=== PATIENT | female | born 1980 | race Two or more races ===

== ENCOUNTER 2025-01-27 00:23 | Observation (INO) | payer BC, MEDICAID, SELFPAY ==
[2025-01-27] VITALS (12 sets, daily range): BP systolic 110–149; BP diastolic 68–89; PULSE 62–95; RESP 16–20; TEMP 36.1–36.9; O2SAT 96–100; BMI 27.4
--- NOTE | 2025-01-27 00:32 | EKG_ITS ---
[facility] Test Date: 2025-01-27 Pat Name: LEA OWEN Department: Room: - Gender: Female Information Coordinator: : 1980 Requested By: Max Rodríguez Order Number: [id number] Reading MD: Max Rodríguez Measurements Intervals [place] Rate: 94 P: 47 AK: 150 QRS: 57 QRSD: 79 T: 61 QT: 367 QTc: 460 Interpretive Statements SINUS RHYTHM No previous ECG available for comparison /store/S0/[id number]
--- NOTE | 2025-01-27 00:33 | PD.EDRME ---
Rapid Medical Screening Exam RME Arrival date/time: 01/27/25 00:23 44 yo f present to ED for c/o of abd, chest pain for 1 day I have greeted and performed a focused initial assessment of this patient. A comprehensive ED assessment and evaluation of the patient, analysis of all test results, and completion of the medical decision making process will be conducted by additional ED providers. Chief Complaint: Abdominal Pain Time Seen by Provider: 01/27/25 00:32 Vital signs: Vital Signs Temperature 98.4 F 01/27/25 02:38 Pulse Rate 68 01/27/25 02:38 Respiratory Rate 18 01/27/25 02:38 Blood Pressure 148/89 H 01/27/25 02:38 Pulse Oximetry (%) 100 01/27/25 02:38 Oxygen Delivery Method Room Air 01/27/25 02:38
[2025-01-27 01:11] LABS: Collection Type, Urine Voided
[2025-01-27 01:11] LABS: Basophils % (Auto) 0 % (0-2.5); Eosinophils % (Auto) 0 % (0-10); Hematocrit 29.4 % (36.0-46.0); Immature Granulocytes % (Auto) 0 % (0-0); Immature Granulocytes Auto 0.01 Thou/mm3 (0.00-0.00); Lymphocytes # (Auto) 1.5 Thou/mm3 (1.0-4.8); Lymphocytes % (Auto) 18 % (10-50); Mean Corpuscular HGB Conc 28.6 g/dl (31.0-37.0); Mean Corpuscular Hemoglobin 18.3 pg (25.0-35.0); Mean Corpuscular Volume 64 fL (80-100); Monocytes # (Auto) 0.7 Thou/mm3 (0.0-0.8); Monocytes % (Auto) 8 % (0-12); Neutrophils # (Auto) 5.9 Thou/mm3 (1.8-7.7); Neutrophils % (Auto) 73 % (37-80); Nucleated Red Blood Cell % 0 /100 WBC (0); Platelet Count 411 Thou/mm3 (140-440); RDW Standard Deviation 41.7 fL (36.4-46.3); Red Blood Count 4.58 Miln/mm3 (4.00-5.20); White Blood Count 8.2 Thou/mm3 (3.6-11.0)
[2025-01-27 01:16] LABS: Hemoglobin 8.4 g/dL (12.0-16.0)
[2025-01-27 01:24] LABS: Path Review Blood Smear Sent to Pathologist
[2025-01-27 01:37] LABS: HCG,Qualitative Serum Negative
[2025-01-27 01:40] LABS: Bilirubin,Urine Negative (Negative); Blood,Urine Negative (Negative); Clarity,Urine Turbid (Clear/Hazy); Color,Urine Yellow (Lt Yel-Yel); Glucose, Urine Negative (Negative); Ketones,Urine 1+ (Negative); Leukocyte Esterase,Urine Negative (Negative); Nitrite,Urine Negative (Negative); Protein,Urine Trace (Neg - Trace); RBC,Urine 2 /hpf (0-3); Specific Gravity,Urine 1.028 (1.001-1.035); Squamous Epithelial Cell,Urine 22 /hpf (0-5); Urobilinogen,Urine Negative mg/dL (0.0-1.0); WBC,Urine 1 /hpf (0-5)
[2025-01-27 01:51] LABS: Alanine Aminotransferase 12 U/L (10-49); Albumin, Serum 4.4 gm/dL (3.5-5.0); Albumin/Globulin Ratio 1.3 (1.2-2.2); Alkaline Phosphatase 70 U/L (46-116); Anion Gap 9 (7-16); Aspartate Amino Transferase 20 U/L (0-34); BUN/Creatinine Ratio 11 Ratio (12-20); Bilirubin,Total 0.7 mg/dL (0.3-1.2); Blood Urea Nitrogen 9 mg/dL (9-23); Calcium 9.1 mg/dL (8.3-10.6); Calcium (Corrected) 9.1 mg/dL (8.5-10.1); Carbon Dioxide 24.9 mMol/L (20.0-31.0); Chloride 106 mMol/L (98-107); Creatinine (Component) 0.8 mg/dL (0.6-1.3); Estimated Creatinine Clearance 89.4 mL/min (>60); Globulin 3.3 gm/dL (2.3-3.5); Glucose 103 mg/dL (74-106); Osmolality,Calculated 278 (275-295); Potassium 3.5 mMol/L (3.4-5.1); Sodium 140 mMol/L (136-145); Total Protein 7.7 gm/dL (5.7-8.2); eGFR > 60 See Note
--- NOTE | 2025-01-27 02:04 | XR_ITS ---
Examination: Pelvic ultrasound, transabdominal, complete Technique: Transabdominal ultrasound of the pelvis performed using grayscale imaging Date and time of exam: January 27, 2025 at 0210 hrs. Indications: Onset pelvic pain today Findings: Uterus 7.1 cm endometrial stripe 0.24 cm No uterine mass or intrauterine gestation Right ovary 3.5 cm arterial flow Left ovary obscured by bowel gas Impression: No uterine mass or intrauterine gestation Negative for right ovarian torsion Left ovary obscured by bowel gas
[2025-01-27 02:10] LABS: Troponin I 0.051 ng/mL (0.0-0.045)
--- NOTE | 2025-01-27 02:48 | PC.NURSE ---
pt came in for abd pain 9/10 pain states abd pain since 0600 with emesis of bile and diarrhea since yesterday, pt states that she had her appendix removed and gallbladder removed.
--- NOTE | 2025-01-27 03:37 | PRELIM_ITS ---
Pelvic ultrasound (transabdominal). January 27, 2025 0210 hours Clinical history: Pelvic pain Findings: The uterus is normal in size measuring 7.1 x 4.6 x 5.9 cm. The endometrium is unremarkable and measures 0.2 cm. The right ovary measures 3.5 x 1.8 x 2.5 cm. The right ovary demonstrates color flow and spectral waveforms on Doppler evaluation. The left ovary is obscured by bowel gas and is not visualized . There is no adnexal mass. There is no free fluid on the submitted images. Impression: Uterus and right ovary are unremarkable. Left ovary not visualized. Report Electronically Signed By: Real Robles 01/27/2025 3:37:05 AM [EST]
[2025-01-27] MEDS: MORPHINE SULF INJ 10 MG/ML VIAL 4 MG IVP (03:49)
[2025-01-27] MEDS: ONDANSETRON INJ 2 MG/ML INJ 2 ML 4 MG IV ×2 (03:49→16:23)
--- NOTE | 2025-01-27 04:39 | PD.EDNV ---
Nausea/Vomit./Diarrhea-RME/HPI General Chief complaint: Abdominal Pain Stated complaint: abd pain nausea vomiting Time Seen by Provider: 01/27/25 00:32 Arrival date/time: 01/27/25 00:23 Limitations: no limitations RME / HPI RME / HPI Narrative: 01/27/25 00:23 44 yo f present to ED for c/o of abd, chest pain for 1 day I have greeted and performed a focused initial assessment of this patient. A comprehensive ED assessment and evaluation of the patient, analysis of all test results, and completion of the medical decision making process will be conducted by additional ED providers. HPI: 44-year female presents emergency department with 1 day history of nonbilious nonbloody vomiting since that started in the last 24 hours. States that she does not know how many times she vomited but it is numerous. She then started having diarrhea nonbloody earlier today and again states that she cannot count the number of diarrhea that she has had. Patient today started having some epigastric burning. Related Data Previous Rx's ?Medication ?Instructions ?Recorded oxycodone-acetaminophen 5 mg-325 1 tab PO Q6H PRN pain #10 tabs 11/16/ mg tablet (Percocet) Allergies Allergy/AdvReac Type Severity Reaction Status Date / Time Penicillins Allergy Intermediate Palpitation Verified 01/27/25 00:29 s Review of Systems Review of Systems Systems Reviewed: All systems reviewed, normal except as documented ED Exam General Limitations: Present no limitations General appearance: Present alert and in no apparent distress Head Head exam: Present atraumatic Eye Eye exam: Present normal appearance, PERRL and EOMI ENT ENT exam: Present normal exam, normal oropharynx and mucous membranes moist Neck Neck exam: Present normal inspection, full ROM and trachea midline Chest Chest inspection: Present normal inspection and symmetric chest wall rise Respiratory Respiratory exam: Present normal lung sounds bilaterally Cardiovascular Cardiovascular exam: Present regular rate, normal rhythm and normal heart sounds Abdominal Exam Abdominal exam: Present soft and normal bowel sounds Extremities Exam Extremities exam: Present normal inspection and full ROM Back Exam Back exam: Present normal inspection and full ROM Neurological Exam Neurological exam: Present alert, oriented X3 and CN II-XII intact Psychiatric Psychiatric exam: Present normal affect and normal mood Skin Skin exam: Present warm, dry, intact and normal color Course Quality Measures none Orders Category Date Time Status CT Screening NOW Care 01/27/25 05:49 Active EKG (ED ONLY) *Do not use* NOW Care 01/27/25 00:32 Completed EKG (ED ONLY) *Do not use* NOW Care 01/27/25 05:[address] angio chest abdomen pelvis Stat Exams 01/27/25 05:49 Completed EKG (ED Only) Stat Exams 01/27/25 00:32 Draft EKG (ED Only) Stat Exams 01/27/25 05:46 Draft US pelvic complete Stat Exams 01/27/25 02:04 Completed CBC Stat Lab 01/27/25 00:56 Completed CMP [Comprehensive Metabolic Panel] Stat Lab 01/27/25 00:56 Completed HCG,Qualitative Serum Stat Lab 01/27/25 00:56 Completed Path Review Blood Smear Stat Lab 01/27/25 00:56 Completed TSH [Thyroid Stimulating Hormone] Stat Lab 01/27/25 00:56 Completed Troponin I Stat Lab 01/27/25 00:56 Completed Troponin I Stat Lab 01/27/25 04:55 Completed Troponin I Stat Lab 01/27/25 08:30 Completed UA [Urinalysis] Stat Lab 01/27/25 00:53 Completed Aspirin Chew Med 01/27/25 05:48 Discontinued 324 mg PO X1 ONE Morphine Inj Med 01/27/25 03:38 Discontinued 4 mg IVP X1 ONE Nitroglycerin Oint 2% [Nitro-paste Oint 2%] Med 01/27/25 05:48 Discontinued 0.5 inch TOP X1 ONE Ondansetron Inj [Zofran Inj] Med 01/27/25 03:39 Discontinued 4 mg IV X1 ONE Vital Signs Vital signs: Vital Signs Temperature 98.4 F 01/27/25 02:38 Pulse Rate 68 01/27/25 02:38 Respiratory Rate 18 01/27/25 02:38 Blood Pressure 148/89 H 01/27/25 02:38 Pulse Oximetry (%) 100 01/27/25 02:38 Oxygen Delivery Method Room Air 01/27/25 02:38 Nausea/Vomiting/Diarrhea MDM Narrative MDM Narrative:: 44-year-old female with no past medical history of coronary artery disease. Non-smoker not on control pills presenting to the emergency department with 1 day history of nausea vomiting diarrhea. Patient also has atypical epigastric pain earlier today. EKG in the emergency department does not show ST elevation or ischemia. On arrival blood pressure is 140s with a heart rate of 95 otherwise afebrile. The patient was screened with labs and initial troponin was slightly elevated. Unclear why patient is having both nausea vomiting diarrhea with atypical presentation of possible coronary artery disease. Differential diagnosis includes possible pulm embolism, ischemia, non-STEMI, dehydration, palpitations, or drug use. 0600: Second troponin comes back slightly elevated at 0.87. Nitropaste and aspirin are given. CT angio is ordered to rule out pulmonary embolism. Patient also has a history of chronic anemia and denies family history or other risk factors for PE. Patient with chronic anemia and is not having any vaginal bleeding or blood in the rectum. Electrolytes are normal. Signed out pending results of urine hCG, drug screen, CT angio, and final disposition. Patient data External records reviewed:: [facility] previous records (2021 seen in the emergency department and hospitalized for acute appendicitis) Clinical information provided by:: patient and family Social determinants that could affect healthcare access:: none Patient has the following chronic illnesses:: History of appendicitis, history of How is presenting disease/condition affected by chronic disease/condition?: no chronic disease Evaluation data The following diagnostics were reviewed and interpreted by me:: lab results and EKG tracing(s) Lab and/or radiology exams considered but not ordered:: none Interpretation Summary: See MDM. Medications / Prescriptions Medications / Prescriptions considered but not ordered:: None Medication administrations:: Medication Administration History Acetaminophen (Acetaminophen 325 Mg Tablet) 650 mg PO Q6H PRN PRN Reason: Fever >100.3 or pain 1-3 Stop: 02/26/25 09:52 Last Admin: 01/27/25 16:23 Dose: 650 mg Documented By: BR Enoxaparin Sodium (Enoxaparin Sod Inj 40 Mg/0.4 Ml Syringe) 40 mg SC QDAY ALEN Stop: 02/10/25 09:59 Last Admin: 01/27/25 10:33 Dose: 40 mg Documented By: DO Ondansetron HCl (Ondansetron Inj 2 Mg/Ml Inj 2 Ml) 4 mg IV Q6H PRN; Protocol PRN Reason: NAUSEA OR VOMITING Stop: 02/26/25 09:52 Last Admin: 01/27/25 16:23 Dose: 4 mg Documented By: BR Sennosides (Senna Tablet) 1 tab PO QDAY PRN; Protocol PRN Reason: constipation Stop: 02/26/25 09:52 Discontinued Medications Al Hydrox/Mg Hydrox/Simethicone (Mg Hyd/Al Hyd/Graeme (Maalox Reg) Susp 30 Ml Udc) 30 ml PO X1 ONE Stop: 01/27/25 20:25 Last Admin: 01/27/25 20:41 Dose: 30 ml Documented By: Aspirin (Aspirin 81 Mg Chew) 324 mg PO X1 ONE Stop: 01/27/25 05:49 Last Admin: 01/27/25 06:00 Dose: 324 mg Documented By: APRYL Hyoscyamine (Hyoscyamine Sulf 0.125 Mg Tab.Subl) 0.125 mg PO X1 ONE Stop: 01/27/25 17:44 Last Admin: 01/27/25 18:25 Dose: 0.125 mg Documented By: JOHN Sodium Chloride (Ns) 1,000 mls @ 100 mls/hr IV .Q10H ALEN Stop: 01/27/25 19:59 Last Infusion: 01/27/25 20:39 Dose: Infused Documented By: Admin: 01/27/25 10:33 Dose: 100 mls/hr Documented By: Morphine Sulfate (Morphine Sulf Inj 10 Mg/Ml Vial) 4 mg IVP X1 ONE Stop: 01/27/25 03:39 Last Admin: 01/27/25 03:49 Dose: 4 mg Documented By: APRYL Nitroglycerin (Nitroglycerin Oint 2% 1 Inch Packet) 0.5 inch TOP X1 ONE Stop: 01/27/25 05:49 Last Admin: 01/27/25 06:00 Dose: 0.5 inch Documented By: BD Ondansetron HCl (Ondansetron Inj 2 Mg/Ml Inj 2 Ml) 4 mg IV X1 ONE; Protocol Stop: 01/27/25 03:40 Last Admin: 01/27/25 03:49 Dose: 4 mg Documented By: BD Pantoprazole Sodium (Pantoprazole Inj 40 Mg Vial) 40 mg IVP X1 ONE Stop: 01/27/25 20:26 Last Admin: 01/27/25 20:41 Dose: 40 mg Documented By: Simethicone (Simethicone 80 Mg Chew) 80 mg PO X1 ONE Stop: 01/27/25 17:44 Last Admin: 01/27/25 17:56 Dose: 80 mg Documented By: BR see above Consultations Consultation(s) initiated? (list below): No Diagnosis Nausea Differential Diagnosis: traveler's diarrhea, food poisoning, gastroenteritis, drug-induced nausea and vomiting, dehydration and other (Electrolyte abnormality, ischemia, palpitations, rate related positive troponin) Most likely diagnosis given after review of the tests above:: final dx pending at sign out. Admission Indicated Admission indicated?: not indicated Explain why admission is indicated or not indicated:: Patient signed out pending CT angio Admission Request Was there a request for admission?: No Disposition Plan Disposition Plan: other (specify) (Patient signed out.) Discharge Plan Plan Patient Disposition: Other Care w/in Hosp ([facility]) Problem List Clinical Impression: Atypical chest pain, Nausea vomiting and diarrhea
[2025-01-27 05:44] LABS: Troponin I 0.087 ng/mL (0.0-0.045)
--- NOTE | 2025-01-27 05:46 | EKG_ITS ---
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
--- NOTE | 2025-01-27 05:49 | XR_ITS ---
Examination: CTA chest, with intravenous contrast. CTA abdomen, with intravenous contrast. CTA pelvis, with intravenous contrast. 2-D sagittal and coronal reconstructions. 3-D reconstructions. Date and time of exam: January 27, 2025 0556 hrs. Indications: Chest and abdominal pain today CTDI vol (mgy) 10.6 DLP (MGycm) 578 Technique: Multiple CTA images, 2.0 mm slice thickness, obtained chest, abdomen, pelvis, with the high-resolution 64 slice scanner. 60 cc Isovue-370 is administered intravenously. Sagittal and coronal 2-D reconstructions are obtained. 3-D reconstructions, angiographic images are obtained. 3-D postprocessing, including vascular maximum intensity projections. Low dose protocols were performed. One or more of the following dose reduction techniques were used; automated exposure control, adjustment of the mA and/or KV according to patient size, use of iterative reconstruction technique. Findings: No thoracic aortic aneurysmal dilatation or dissection No pulmonary artery filling defects No paratracheal tracheobronchial or bronchopulmonary adenopathy No pneumonia or pulmonary edema or pleural disease No liver or splenic lesions Absent gallbladder No pancreatic or adrenal mass No common hepatic or common bile duct stones noted No renal or ureteral calculi, no hydronephrosis Aorta normal size Appendix is not visualized No bowel obstruction There is mild diffuse thickening of the colonic wall especially in the rectosigmoid Intact urinary bladder Anteverted uterus Absent osseous structures are intact Impression: Negative for pulmonary artery emboli No mediastinal lymphadenopathy No pneumonia, pulmonary edema or pleural disease Absent appendix Nonspecific colitis pattern, especially involving sigmoid colon
[2025-01-27] MEDS: NITROGLYCERIN OINT 2% 1 INCH PACKET 0.5 INCH TOP (06:00)
[2025-01-27] MEDS: ASPIRIN 81 MG CHEW 324 MG PO (06:00)
--- NOTE | 2025-01-27 06:58 | PD.EDADDENDU ---
Emergency Room Addendum Addendum Narrative: 0600: Care assumed from Dr. Garcia, the previous shift emergency physician. Past medical, surgical, social and family history reviewed. Vitals and home medications reviewed. I will assume the care of the patient at this time, pending urine hCG, drug screen, CT angio, and final disposition. Please refer to the emergency department record for history and examination from initial visit.? 44 year old female presents to the Emergency Department with complaint of lower abdominal pain. Patient thought she had food poisoning. Then, started having nausea, vomiting and diarrhea. She reports passing gas. No constipation or other symptoms. Physical exam by me shows patient under no acute distress at this time. 0950: Discussed test HPI, PMHx, lab, radiology results and/or management with hospitalist. Will admit for further evaluation and management. Accepts patient for admission. Diagnoses: - Atypical chest pain - Nausea, vomiting, and diarrhea RADIOLOGY Procedure(s): CT angio chest abdomen pelvis Accession Number(s): [id number] cc: Jose Manuel Douglas MD; NO PRIMARY/FAMILY,PHYSICIAN; Kait Garcia MD~ Examination: CTA chest, with intravenous contrast. CTA abdomen, with intravenous contrast. CTA pelvis, with intravenous contrast. 2-D sagittal and coronal reconstructions. 3-D reconstructions. Date and time of exam: January 27, 2025 0556 hrs. Indications: Chest and abdominal pain today CTDI vol (mgy) 10.6 DLP (MGycm) 578 Technique: Multiple CTA images, 2.0 mm slice thickness, obtained chest, abdomen, pelvis, with the high-resolution 64 slice scanner. 60 cc Isovue-370 is administered intravenously. Sagittal and coronal 2-D reconstructions are obtained. 3-D reconstructions, angiographic images are obtained. 3-D postprocessing, including vascular maximum intensity projections. Low dose protocols were performed. One or more of the following dose reduction techniques were used; automated exposure control, adjustment of the mA and/or KV according to patient size, use of iterative reconstruction technique. Findings: No thoracic aortic aneurysmal dilatation or dissection No pulmonary artery filling defects No paratracheal tracheobronchial or bronchopulmonary adenopathy No pneumonia or pulmonary edema or pleural disease No liver or splenic lesions Absent gallbladder No pancreatic or adrenal mass No common hepatic or common bile duct stones noted No renal or ureteral calculi, no hydronephrosis Aorta normal size Appendix is not visualized No bowel obstruction There is mild diffuse thickening of the colonic wall especially in the rectosigmoid Intact urinary bladder Anteverted uterus Absent osseous structures are intact Impression: Negative for pulmonary artery emboli No mediastinal lymphadenopathy No pneumonia, pulmonary edema or pleural disease Absent appendix Nonspecific colitis pattern, especially involving sigmoid colon Dictated By: Jose Manuel Douglas MD
--- NOTE | 2025-01-27 07:27 | PC.NURSE ---
PT RESTING IN BED IN NO APPARENT DISTRESS. PT DENIES PAIN BUT STATES THAT SHE OCCASIONALLY FEELS A WEIRD FEELING IN HER CHEST. 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 PVC'S ARE OCCASIONAL. PT REPORTED THAT SHE HAS BEEN SICK RECENTLY AND NOT EATING OR SLEEPING WELL AND THOUGH SHE MAY BE DEHYDRATED. ALL LABS AND RADIOLOGY STUDIES ARE DONE AND RESULTED. PT AWAITING TO SEE ER DOCTOR FOR RESULTS. CALL LIGHT WITHIN REACH
[2025-01-27 08:56] LABS: Troponin I 0.112 ng/mL (0.0-0.045)
[2025-01-27] MEDS: ENOXAPARIN SOD INJ 40 MG/0.4 ML SYRINGE SC (10:33)
[2025-01-27] MEDS: SODIUM CHLORIDE 0.9% 1000 ML 1,000 ML 100 ML IV (10:33)
[2025-01-27 10:51] LABS: Troponin I 0.116 ng/mL (0.0-0.045)
--- NOTE | 2025-01-27 12:01 | PC.NURSE ---
PT SITTING UP IN BED IN NO APPARENT DISTRESS. ASKED PT IF SHE NEEDED ANYTHING. PT HAS NO REQUEST AT THIS TIME. CALL LIGHT WITHIN REACH
--- NOTE | 2025-01-27 14:52 | ESHP_ITS ---
Documentation for date of: 01/27/25 [facility] History of Present Illness Chief complaint: abdominal pain History of present illness: Na Pineda is 44 yr female with no significant PMH who has presented to ED today due to abdominal pain and plapitations. Stated that vomiting started yesterday morning while at work and continued through the day with diarrhea. She denies any blood in vomit or stool. Patient had ate out about 2-3 days ago with family. She has not been able to drink or eat anything since episodes started. Last night, she started experiencing palpitations with no typical chest pain. Some discomfort, non radiating. She denies any SOB, or difficulty in daily activity, no dysuria, no LE edema. Work up in ED was unremarkable except for troponins elevating. EKG showed no ST changes, anemia with Hb 8.4, normal CMP, TSH normal, pelvis u/s negative, CTA chest/abdomen negative. She was given nitroglycerin x 1, loading dose aspirin 325 x 1, morphine 4 mg. Patient admitted for observation and monitoring for NSTEMI type II. PmH: no significant hx PSH: Cholecystectomy 2002, appendectomy 2020 Social: works at critical [employer], denies drinking, no smoking, no drug use FamHx: Mother and father alive, both have history of HTN Allergies: penicillins-palpitations Meds: none Review of Systems Constitutional Constitutional: Reports system reviewed and no additional complaints, except as documented Exam Vital Signs Temp Pulse Resp BP Pulse Ox O2 Del Method 97.9 F 17 L 17 133/72 H 100 Room Air 01/27/25 14:00 01/27/25 14:00 01/27/25 14:00 01/27/25 14:00 01/27/25 14:01/27/25 14:00 Narrative Exam General: Middle aged, No acute distress, cooperative HEENT: NCAT, No JVD noted. Mucosa moist. Pupils are equal and reactive to light bilaterally Cardiovascular: Normal S1 and S2. Regular rate and rhythm. Respiratory: Lungs are clear to auscultation bilaterally. No wheezing or crackles heard. Abdomen: Soft, nontender, not distended, normal bowel sounds. Skin: Warm to touch, dry, no rashes noted Musculoskeletal: No gross injuries. Able to move all 4 extremities. No pitting edema Neuro: Alert and oriented x3. No focal neuro deficits. Psych: Normal affect and mood Results: Labs 01/28/25 04:27 01/28/25 04:27 Labs: Short CBC 01/27/25 Range/Units 00:56 WBC 8.2 (3.6-11.0) Thou/mm3 Hgb 8.4 L (12.0-16.0) g/dL Hct 29.4 L (36.0-46.0) % Plt Count 411 (140-440) Thou/mm3 BMP 01/27/25 00:56 Sodium 140 Potassium 3.5 Chloride 106 Carbon Dioxide 24.9 BUN 9 Creatinine 0.8 Glucose 103 Calcium 9.1 Cardiac Enzymes 01/27/25 01/27/25 01/27/25 Range/Units 00:56 04:55 08:30 Troponin I 0.051 H* 0.087 H* 0.112 H* (0.0-0.045) ng/mL 01/27/25 Range/Units 10:13 Troponin I 0.116 H* (0.0-0.045) ng/mL Liver Function 01/27/25 Range/Units 00:56 Total Bilirubin 0.7 (0.3-1.2) mg/dL AST 20 (0-34) U/L ALT 12 (10-49) U/L Alkaline Phosphatase 70 (46-116) U/L Albumin 4.4 (3.5-5.0) gm/dL Urine 01/27/25 Range/Units 00:53 Urine Color Yellow (Lt Yel-Yel) Urine Clarity Turbid A (Clear/Hazy) Urine pH 6.0 (5.0-7.0) Ur Specific [place] 1.028 (1.001-1.035) Urine Protein Trace (Neg - Trace) Urine Glucose (UA) Negative (Negative) Quality Measures Quality Measures VTE prophylaxis Medications Home Medications and Allergies Allergies Allergy/AdvReac Type Severity Reaction Status Date / Time Penicillins Allergy Intermediate Palpitation Verified 02/04/25 10:44 s Visit Medications Acetaminophen (Acetaminophen 325 Mg Tablet) 650 mg PO Q6H PRN PRN Reason: Fever >100.3 or pain 1-3 Stop: 02/26/25 09:52 Enoxaparin Sodium (Enoxaparin Sod Inj 40 Mg/0.4 Ml Syringe) 40 mg SC QDAY ALEN Stop: 02/10/25 09:59 Last Admin: 01/27/25 10:33 Dose: 40 mg Sodium Chloride (Ns) 1,000 mls @ 100 mls/hr IV .Q10H ALEN Stop: 01/27/25 19:59 Last Admin: 01/27/25 10:33 Dose: 100 mls/hr Ondansetron HCl (Ondansetron Inj 2 Mg/Ml Inj 2 Ml) 4 mg IV Q6H PRN; Protocol PRN Reason: NAUSEA OR VOMITING Stop: 02/26/25 09:52 Sennosides (Senna Tablet) 1 tab PO QDAY PRN; Protocol PRN Reason: constipation Stop: 02/26/25 09:52 Discontinued Medications Aspirin (Aspirin 81 Mg Chew) 324 mg PO X1 ONE Stop: 01/27/25 05:49 Last Admin: 01/27/25 06:00 Dose: 324 mg Morphine Sulfate (Morphine Sulf Inj 10 Mg/Ml Vial) 4 mg IVP X1 ONE Stop: 01/27/25 03:39 Last Admin: 01/27/25 03:49 Dose: 4 mg Nitroglycerin (Nitroglycerin Oint 2% 1 Inch Packet) 0.5 inch TOP X1 ONE Stop: 01/27/25 05:49 Last Admin: 01/27/25 06:00 Dose: 0.5 inch Ondansetron HCl (Ondansetron Inj 2 Mg/Ml Inj 2 Ml) 4 mg IV X1 ONE; Protocol Stop: 01/27/25 03:40 Last Admin: 01/27/25 03:49 Dose: 4 mg Assessment & Plan Plan Na Pineda is 44 yr female with no significant PMH who has presented to ED today due to abdominal pain and plapitations. Stated that vomiting started yesterday morning while at work and continued through the day with diarrhea. She denies any blood in vomit or stool. Patient had ate out about 2-3 days ago with family. Last night, she started experiencing palpitations with no typical chest pain. Some discomfort, non radiating. Patient admitted for observation and monitoring for NSTEMI type II. #NSTEMI II Atypical chest pain, states its more uncomfortable with palpitations. No SOB. EKG showed no ST changes TSH normal, pelvis u/s negative, CTA chest/abdomen negative. trops 0.051-->0.087-->0.112 -trend trops q6hr -maintainence fluids -follow up outpatient cardiology -morphine 4mg PRN -aspirin 81mg -no cardiology consultation #Microcytic anemia MCV 64, Hb 8.4 No active bleeding, maybe due to menstruation. Has never had workup done. -iron pannel pending -start ferrous sulfate Health maintenance: Dispo: tele, trend trops FEN: regular diet DVT prophylaxis: Lovenox daily CODE STATUS: Full cod The patient's management plan was discussed with my attending physician Dr. Triana. Melida Cristina, PGY-1 Attending Provider Attestation/Addendum Patient seen and examined at bedside with resident. Agree with assessment and plan as dictated above. Konrad Triana MD
--- NOTE | 2025-01-27 15:14 | PC.NURSE ---
REPORT GIVEN TO KATIE ON TELE FLOOR. PT TO GO TO ROOM 273
[2025-01-27 15:56] LABS: Ferritin 3 ng/mL (7.3-270.7); Iron 13 mcg/dL (50-170); Percent Iron Saturation 3 % (20-55); Total Iron Binding Capacity 413 mcg/dL (250-425); Unsaturated Iron Binding 400 (225-295)
[2025-01-27] MEDS: ACETAMINOPHEN 325 MG TABLET 650 MG PO (16:23)
[2025-01-27] MEDS: SIMETHICONE 80 MG CHEW PO (17:56)
[2025-01-27 18:04] LABS: Troponin I 0.108 ng/mL (0.0-0.045)
[2025-01-27] MEDS: HYOSCYAMINE SULF 0.125 MG TAB.SUBL PO (18:25)
[2025-01-27] MEDS: PANTOPRAZOLE INJ 40 MG VIAL IVP (20:41)
[2025-01-27] MEDS: MG HYD/AL HYD/SIME (Maalox Reg) SUSP 30 ML UDC PO (20:41)
[2025-01-27 22:08] LABS: Troponin I 0.133 ng/mL (0.0-0.045)
[2025-01-28] VITALS: BP 115/68; PULSE 105; PULSE 98; RESP 14; TEMP 36.7; O2SAT 98
[2025-01-28 02:28] LABS: Troponin I 0.121 ng/mL (0.0-0.045)
[2025-01-28 04:00] VITALS: BP 135/98; PULSE 78; PULSE 90; RESP 17; TEMP 36.3; O2SAT 99
[2025-01-28 05:09] LABS: Basophils % (Auto) 1 % (0-2.5); Eosinophils # (Auto) 0.1 Thou/mm3 (0.0-0.5); Eosinophils % (Auto) 2 % (0-10); Hematocrit 27.9 % (36.0-46.0); Immature Granulocytes % (Auto) 0 % (0-0); Immature Granulocytes Auto 0.01 Thou/mm3 (0.00-0.00); Lymphocytes # (Auto) 1.7 Thou/mm3 (1.0-4.8); Lymphocytes % (Auto) 30 % (10-50); Mean Corpuscular HGB Conc 27.6 g/dl (31.0-37.0); Mean Corpuscular Hemoglobin 17.9 pg (25.0-35.0); Mean Corpuscular Volume 65 fL (80-100); Monocytes # (Auto) 0.6 Thou/mm3 (0.0-0.8); Monocytes % (Auto) 11 % (0-12); Neutrophils # (Auto) 3.3 Thou/mm3 (1.8-7.7); Neutrophils % (Auto) 58 % (37-80); Nucleated Red Blood Cell % 0 /100 WBC (0); Platelet Count 313 Thou/mm3 (140-440); RDW Standard Deviation 41.6 fL (36.4-46.3); Red Blood Count 4.31 Miln/mm3 (4.00-5.20); White Blood Count 5.8 Thou/mm3 (3.6-11.0)
[2025-01-28 05:40] LABS: Alanine Aminotransferase 11 U/L (10-49); Albumin/Globulin Ratio 1.4 (1.2-2.2); Alkaline Phosphatase 67 U/L (46-116); Anion Gap 9 (7-16); Aspartate Amino Transferase 20 U/L (0-34); BUN/Creatinine Ratio 10 Ratio (12-20); Bilirubin,Total 0.9 mg/dL (0.3-1.2); Blood Urea Nitrogen 7 mg/dL (9-23); Calcium 8.7 mg/dL (8.3-10.6); Calcium (Corrected) 8.7 mg/dL (8.5-10.1); Carbon Dioxide 24.1 mMol/L (20.0-31.0); Cardiac Risk Estimate 3.2 RATIO (3.7-5.6); Chloride 107 mMol/L (98-107); Cholesterol 139 mg/dL (132-200); Creatinine (Component) 0.7 mg/dL (0.6-1.3); Globulin 2.9 gm/dL (2.3-3.5); Glucose 87 mg/dL (74-106); HDL Cholesterol 44 mg/dL (40-60); LDL Cholesterol,Calculated 79 mg/dL (0-130); Magnesium 1.7 mg/dL (1.6-2.6); Osmolality,Calculated 276 (275-295); Phosphorous 2.9 mg/dL (2.4-5.1); Potassium 3.3 mMol/L (3.4-5.1); Sodium 140 mMol/L (136-145); Total Protein 6.9 gm/dL (5.7-8.2); Triglycerides 79 mg/dL (30-150); eGFR > 60 See Note
[2025-01-28 06:00] VITALS: BMI 27.9
--- NOTE | 2025-01-28 07:14 | PC.NURSE ---
Patient HR increased to 150 while sitting on the side of the bed. Patient reports no pain. Dr Cristina will assess patient at bedside.
[2025-01-28 07:28] VITALS: PULSE 118; RESP 33; RESP 98
[2025-01-28 07:41] VITALS: BP 115/88; BP 119/83; BP 134/79
[2025-01-28 07:42] LABS: Hemoglobin 7.7 g/dL (12.0-16.0)
[2025-01-28 08:00] VITALS: BP 135/90; PULSE 79; PULSE 90; RESP 17; TEMP 36.4; O2SAT 94
[2025-01-28] MEDS: FERROUS SULF 325 MG TABLET PO (08:02)
[2025-01-28] MEDS: POTASSIUM CHLORIDE 20 mEq TABCR 40 MEQ PO (08:02)
[2025-01-28] MEDS: ENOXAPARIN SOD INJ 40 MG/0.4 ML SYRINGE SC (08:02)
[2025-01-28] MEDS: SODIUM CHLORIDE 0.9% 1000 ML 1,000 ML 100 ML IV (08:02)
--- NOTE | 2025-01-28 09:09 | PC.SS ---
Follow up note: Pt is d/c for today and will return home.
--- NOTE | 2025-01-28 20:28 | ESDS_ITS ---
Planned Discharge Date 01/28/25 DS: Providers Provider Date of admission: 01/27/25 09:53 Primary care physician: Physician No Primary/Family Admitting Provider: Konrad Triana MD Attending Provider on Admission: Jefry Ricardo DO Attending Provider on DC: Jefry Ricardo DO Discharging Provider: Jefry Riacrdo DO DS: Diagnosis Problem List Completed Was Problem List Reviewed/Reconciled?: Yes Hospital Course Hospital Course Hospital course: Reason for hospitalization: abdominal pain, elevated troponins Na Pineda is 44 yr female with no significant PMH who has presented to [facility] ED on 01/27/25 due to abdominal pain and palpitations. Patient had vomiting that started two days ago. It continued throughout the day along with diarrhea. She denied any blood in vomit or stool. Patient had ate out about 2-3 days ago with family. She has not been able to drink or eat anything since episodes started. Work up in ED was unremarkable except for troponins elevating. EKG showed no ST changes, Hb 8.4, normal CMP, TSH normal (2.20), pelvis u/s negative, CTA chest/abdomen negative. Patient was admitted for observation and monitoring for NSTEMI type II. Troponins peaked at 0.133. Further workup including iron pannel showed iron deficiency anemia with iron 13, TIBC 413, iron sat 3%, ferritin 3. She was started on oral ferrous sulfate and given fluids for repletion. Patient is now in stable condition and ready for discharge. Recommendations were given as below. Discharge Recommendations: Continue taking ferrous sulfate once a day for your iron deficiency anemia. Obtain referral for Cardiology Outpatient and follow up with a java lead developer. Hydrate with water intake of 40-50oz Follow-up in [facility] in 1 to 2 weeks. Call [phone] to make an appointment Address: [facility], [address], [address], [place], [address] Return to ED if symptoms return or worsen. Hospital Diagnoses: #NSTEMI II #Microcytic anemia The patient's management plan was discussed with my attending physician Dr. Ricardo. Melida Cristina MD, PGY-1 Time Spent with Patient Time attestation: Total time spent providing and/or coordinating discharge services: Time spent: Greater than 30 minutes Exam Vital Signs Temp Pulse Resp BP Pulse Ox O2 Del Method 97.6 F 79 17 135/90 H 94 L Room Air 01/28/25 08:00 01/28/25 08:00 01/28/25 08:00 01/28/25 08:00 01/28/25 08:00 01/28/25 08:00 Narrative Exam General: Middle aged, No acute distress, cooperative HEENT: NCAT, No JVD noted. Mucosa moist. Pupils are equal and reactive to light bilaterally Cardiovascular: Normal S1 and S2. Regular rate and rhythm. Respiratory: Lungs are clear to auscultation bilaterally. No wheezing or crackles heard. Abdomen: Soft, nontender, not distended, normal bowel sounds. Skin: Warm to touch, dry, no rashes noted Musculoskeletal: No gross injuries. Able to move all 4 extremities. No pitting edema Neuro: Alert and oriented x3. No focal neuro deficits. Psych: Normal affect and mood Discharge Plan Plan Patient Disposition: HOME (Self Care) Patient condition on transfer: Stable Prescriptions/Referrals Prescriptions/Med Rec: New ferrous sulfate 325 mg (65 mg iron) Tablet,Delayed Release (Dr/Ec) 325 mg PO DAILY 30 Days Qty: 30 0RF Discontinued oxycodone-acetaminophen [Percocet] 5-325 mg tablet 1 tab PO Q6H MDD 4 tabs PRN (Reason: pain) Qty: 10 0RF Referrals: Melida Cristina MD [Resident] - No Primary/Family,Physician [Primary Care Provider] - Patient/Caregiver Discharge Instructions Discharge Activity: activity as tolerated Other Discharge Activity Instructions:: Continue taking ferrous sulfate once a day for your iron deficiency anemia. Obtain referral for Cardiology Outpatient and follow up with a java lead developer. Follow-up in [facility] in 1 to 2 weeks. Call [phone] to make an appointment Address: [facility], [address], [address], [place], [address] Return to ED if symptoms return or worsen. Other Discharge Diet Instructions: Hydrate with water intake of 40-50oz Education Materials: Self-Care for Vomiting and Diarrhea, ED Chest Pain, Uncertain Cause Print Language: Vietnamese Stand Alone Forms: [employer] Award Info., Patient Portal Info Letter, Work/Release Restrictions Discharge Order Discharge Orders: Discharge (Routine); Ordered 01/28/25 Ordered By: Phillip Samson Quality Discharge Quality Measures VTE prophylaxis MD Attestestation MD Attestation I have discussed and was present for the essential components of the discharge history, physical examination, diagnosis, and discharge treatment plan with the resident. I agree with the patient's discharge care as documented by the resident and amended herein by me. Karel Ricardo DO. The patient understood all discharge instructions, all questions were answered satisfactorily. The patient was instructed to return to the Emergency Department is symptoms worsened or persisted. Although this document has been carefully reviewed, there may still be some phonetic and other typographical errors. These errors are purely grammatical due to imperfections in the software program and should not be construed in any way to compromise the substance of the patient's medical care during this visit.
== END 2025-01-28 11:22 | disposition home or self-care (01) ==
LOC: SERX 06:54 → SERHOLD 12:13 → S2NX 01-28 07:30 → SERHOLD 01-28 09:23 → S2NX 01-28 09:24
PROVIDERS: Emergency Medicine; Physician Assistant; Admitting Provider Student in an Organized Health Care Education/Training Program; Emergency Provider Emergency Medicine; Visit Provider Student in an Organized Health Care Education/Training Program
DX: I21.A1 Myocardial infarction type 2 (principal); D50.9 Iron deficiency anemia, unspecified; K52.9 Noninfective gastroenteritis and colitis, unspecified; Z01.810 Encounter for preprocedural cardiovascular examination
CPT/HCPCS: 36415; 71275; 74174; 76856; 80053; 80061; 81001; 82728; 83540; 83550; 83735; 84100; 84443; 84484; 84703; 85025; 93005; 96361; 96374; 99285; A4649; G0378; J1650; J2270; J2405; J2470; J7030; Q9967; A9270

== ENCOUNTER 2025-02-04 10:35 | Outpatient (AMB) | payer BC, MEDICAID, SELFPAY ==
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
[2025-02-04 10:43] VITALS: BP 110/70; PULSE 75; RESP 16; TEMP 36.8; O2SAT 98
== END 2025-02-04 11:19 | disposition home or self-care (01) ==
LOC: HODAHC 10:35
PROVIDERS: Supervising Provider Internal Medicine
DX: D50.9 Iron deficiency anemia, unspecified (principal); R11.2 Nausea with vomiting, unspecified
CPT/HCPCS: 99213; G0463

== ENCOUNTER → 2025-02-07 | Outpatient (CLI) | payer BC, MEDICAID, SELFPAY ==
[2025-02-07 13:29] LABS: Immature Reticulocyte Fraction 10.4 % (3.0-15.9); Reticulocyte Absolute Auto 41.2 Biln/L (25.0-75.0); Reticulocyte Hgb Content 18.4 pg (28.0-35.0)
[2025-02-18 07:13] LABS: Immunoglobulin A 211 mg/dL (47-310); tTG Ab, IgA <1.0 U/mL
== END | disposition home or self-care (01) ==
PROVIDERS: PCP Internal Medicine; Referring Provider Internal Medicine; Visit Provider Internal Medicine
DX: D50.9 Iron deficiency anemia, unspecified (principal)
CPT/HCPCS: 36415; 82784; 85046; 86364

== ENCOUNTER → 2025-05-30 | Outpatient (CLI) | payer BC, MEDICAID, SELFPAY ==
[2025-05-30 14:12] LABS: Collection Type, Urine Clean Catch
[2025-05-30 14:37] LABS: Basophils # (Auto) 0.0 Thou/mm3 (0.0-0.2); Basophils % (Auto) 1 % (0-2.5); Eosinophils # (Auto) 0.1 Thou/mm3 (0.0-0.5); Eosinophils % (Auto) 1 % (0-10); Hematocrit 26.5 % (36.0-46.0); Immature Granulocytes Auto 0.01 Thou/mm3 (0.00-0.00); Lymphocytes # (Auto) 1.3 Thou/mm3 (1.0-4.8); Lymphocytes % (Auto) 21 % (10-50); Mean Corpuscular HGB Conc 26.0 g/dl (31.0-37.0); Mean Corpuscular Hemoglobin 17.3 pg (25.0-35.0); Mean Corpuscular Volume 66 fL (80-100); Monocytes # (Auto) 0.3 Thou/mm3 (0.0-0.8); Monocytes % (Auto) 5 % (0-12); Neutrophils # (Auto) 4.4 Thou/mm3 (1.8-7.7); Neutrophils % (Auto) 73 % (37-80); Nucleated Red Blood Cell # 0.00 Thou/mm3 (0.00-0.00); Nucleated Red Blood Cell % 0 /100 WBC (0); Platelet Count 379 Thou/mm3 (140-440); RDW Standard Deviation 42.8 fL (36.4-46.3); Red Blood Count 4.00 Miln/mm3 (4.00-5.20); White Blood Count 6.1 Thou/mm3 (3.6-11.0)
[2025-05-30 14:38] LABS: Bilirubin,Urine Negative (Negative); Blood,Urine 3+ (Negative); Clarity,Urine Clear (Clear/Hazy); Color,Urine Yellow (Lt Yel-Yel); Culture Indicated,Urine Not Indicated; Glucose, Urine Negative (Negative); Ketones,Urine Negative (Negative); Leukocyte Esterase,Urine Positive (Negative); Nitrite,Urine Negative (Negative); PH,Urine 6.0 (5.0-7.0); Protein,Urine Trace (Neg - Trace); RBC,Urine 5 /hpf (0-3); Specific Gravity,Urine 1.029 (1.001-1.035); Squamous Epithelial Cell,Urine 5 /hpf (0-5); Urobilinogen,Urine Negative mg/dL (0.0-1.0); WBC,Urine 7 /hpf (0-5)
[2025-05-30 14:55] LABS: Hemoglobin 6.9 g/dL (12.0-16.0)
[2025-05-30 15:05] LABS: Vitamin B12 297 pg/mL (211-911); Vitamin D 25 Hydroxy Total 18.5 ng/mL (7.3-40.2)
[2025-05-30 15:07] LABS: Alanine Aminotransferase 7 U/L (10-49); Albumin, Serum 4.1 gm/dL (3.5-5.0); Albumin/Globulin Ratio 1.4 (1.2-2.2); Alkaline Phosphatase 48 U/L (46-116); Anion Gap 10 (7-16); Aspartate Amino Transferase 21 U/L (0-34); BUN/Creatinine Ratio 13 Ratio (12-20); Bilirubin,Total 0.4 mg/dL (0.3-1.2); Blood Urea Nitrogen 10 mg/dL (9-23); Calcium 9.2 mg/dL (8.3-10.6); Calcium (Corrected) 9.2 mg/dL (8.5-10.1); Carbon Dioxide 24.8 mMol/L (20.0-31.0); Chloride 106 mMol/L (98-107); Creatinine (Component) 0.8 mg/dL (0.6-1.3); Globulin 2.9 gm/dL (2.3-3.5); Glucose 113 mg/dL (74-106); Osmolality,Calculated 281 (275-295); Potassium 4.0 mMol/L (3.4-5.1); Sodium 141 mMol/L (136-145); Thyroid Stimulating Hormone 1.52 uIU/mL (0.55-4.78); Total Protein 7.0 gm/dL (5.7-8.2); Troponin I < 0.002 ng/mL (0.0-0.045); eGFR > 60 See Note
[2025-05-30 16:03] LABS: Path Review Blood Smear Sent to Pathologist
[2025-05-30 16:21] LABS: Iron 13 mcg/dL (50-170); Percent Iron Saturation 2 % (20-55); Total Iron Binding Capacity 535 mcg/dL (250-425); Unsaturated Iron Binding 522 (225-295)
[2025-05-31 07:34] LABS: Misc Send Out* See Sep Rpt
== END | disposition home or self-care (01) ==
LOC: COPL 12:46
PROVIDERS: PCP Family Medicine; Referring Provider Registered Nurse; Visit Provider Registered Nurse
DX: Z00.00 Encounter for general adult medical examination without abnormal findings (principal); D64.9 Anemia, unspecified; R07.89 Other chest pain
CPT/HCPCS: 36415; 80053; 81001; 82306; 82607; 83036; 83540; 83550; 84443; 84484; 85025